=== PATIENT | female | born 1945 | race Caucasian/White ===

== ENCOUNTER 2018-03-23 07:19 | Emergency (ER) | payer MEDICARE ==
[~2018-03-23 07:19] MED LIST: DARV PO; ESTR.3 PO; LISI10TA PO; LORT5TAB PO
[2018-03-23 07:31] VITALS: BP 140/76; PULSE 93; RESP 16; TEMP 98.9; O2SAT 95
[2018-03-23] MEDS ORDERED: LISI20TA PO (08:17)
[2018-03-23] MEDS ORDERED: CEPH-460 PO (08:17)
[2018-03-23] MEDS ORDERED: ALBU6.7H INH (08:32)
[2018-03-23] MEDS ORDERED: TRIA1SPR7 EACH NARE (08:32)
[2018-03-23] MEDS ORDERED: BENZ100 PO (08:32)
[2018-03-23] MEDS ORDERED: LORA-400 PO (08:32)
[2018-03-23] MEDS ORDERED: GUAI100S5 PO (08:32)
--- NOTE | 2018-03-23 08:32 | PD ---
HPI Chief Complaint: Cold / Flu Symptoms Time Seen by Provider: 08:19 Travel History International Travel<30 days: No Contact w/Intl Traveler<30days: No Traveled to known affect area: No History of Present Illness HPI 72-year-old female complains of cough for about 1 week. Keflex has not helped. Associated symptoms include right middle ear effusion and possible sinusitis. Falls cough drops or helpful. No fever. No chest pain or shortness of breath. Patient has had difficulty sleeping because of the cough. Patient also reports rhinorrhea. She denies GERD. No history of asthma or COPD. PFSH Past Medical History Arthritis: No Blood Disorders: No Heart Rhythm Problems: No Cancer: Yes (skin - removed) High Cholesterol: No Chemotherapy: No Chest Pain: No Congestive Heart Failure: No Diabetes: No Diminished Hearing: No Endocrine: No Headaches: Yes Hypertension: Yes Immune Disorder: No Musculoskeletal: No Neurologic: No Psychiatric: No Respiratory: No Myocardial Infarction: No Radiation Therapy: No Influenza Vaccination: No ?: Not Past Surgical History Abdominal Surgery: Yes (exp lap) AICD: No Arteriovenous Shunt: No Cardiac Surgery: No Ear Surgery: No Endocrine Surgery: No Eye Surgery: No Genitourinary Surgery: No Gynecologic Surgery: Yes (BILAT OOPHRECTOMY, CYSTS REMOVED FROM BREASTS.) Hysterectomy: Yes Insulin Pump: No Joint Replacement: No Oral Surgery: No Pacemaker: No Thoracic Surgery: No Tonsillectomy: Yes Other Surgery: Yes (breast surgery for fibroids) Social History Alcohol Use: Yes (OCCAISIONAL) Tobacco Use: No Substance Use: No Allergies-Medications (Allergen,Severity, Reaction): Coded Allergies: erythromycin base (Verified Allergy, Mild, vomiting, 03/23/18) penicillin G (Verified Allergy, Unknown, 03/23/18) hydromorphone (Verified Adverse Reaction, Severe, VOMITING, 03/23/18) Reported Meds & Prescriptions Reported Meds & Active Scripts Active Reported Lisinopril-Hctz 20-12.5 Mg Tab 1 Tab PO DAILY Keflex (Cephalexin) 500 Mg Cap 500 Mg PO Q8H Review of Systems Except as stated in HPI: all other systems reviewed are Neg General / Constitutional: No: Fever Physical Exam Narrative GENERAL: 72-year-old female pleasant well-nourished well-developed occasional cough Vital Signs Date Time Temp Pulse Resp B/P (MAP) Pulse Ox O2 Delivery O2 Flow Rate FiO2 03/23/18 08:12 17 95 Room Air 03/23/18 07:31 98.9 93 16 140/76 (97) 95 SKIN: Warm and dry. HEAD: Atraumatic. Normocephalic. EYES: Pupils equal and round. No scleral icterus. No injection or drainage. ENT: No nasal bleeding or discharge. Mucous membranes pink and moist.There is no middle ear effusion or erythema about the tympanic membrane on a side. No mastoid tenderness. Posterior oropharynx is widely patent. There is no exudate or asymmetry. NECK: Trachea midline. No JVD. CARDIOVASCULAR: Regular rate and rhythm. RESPIRATORY: No accessory muscle use. Clear to auscultation. Breath sounds equal bilaterally. GASTROINTESTINAL: Abdomen soft, non-tender, nondistended. Hepatic and splenic margins not palpable. MUSCULOSKELETAL: Extremities without clubbing, cyanosis, or edema. No obvious deformities. NEUROLOGICAL: Awake and alert. No obvious cranial nerve deficits. Motor grossly within normal limits. Five out of 5 muscle strength in the arms and legs. Normal speech. PSYCHIATRIC: Appropriate mood and affect; insight and judgment normal. Data Data Last Documented VS Vital Signs Date Time Temp Pulse Resp B/P (MAP) Pulse Ox O2 Delivery O2 Flow Rate FiO2 03/23/18 08:12 17 95 Room Air 03/23/18 07:31 98.9 93 140/76 (97) [facility] Medical Decision Making Medical Screen Exam Complete: Yes Emergency Medical Condition: Yes Medical Record Reviewed: Yes Differential Diagnosis Postnasal drip, GERD, lisinopril side effect Narrative Course Patient with cough for one and a half weeks. Scripts as below. Diagnosis Primary Impression: Post-nasal drip Referrals: Primary Care Physician call for appointment Med/Other Pt SpecificInfo: Prescription(s) given Scripts Albuterol 6.7 GM Inh (Proventil Hfa 6.7 GM Inh) 90 Mcg/Act Aer 2 PUFF INH Q4-6H Y for SHORTNESS OF BREATH for 7 Days, #1 INHALER 0 Refills Prov: Guille Alicea MD 03/23/18 Triamcinolone Nasal (Nasal Allergy 24 Hour) 55 Mcg Spr 1 SPRAY EACH NARE DAILY for Allergies for 7 Days, #1 BOTTLE 0 Refills Prov: Guille Alicea MD 03/23/18 Loratadine-Pseudoephedrine 24 HR (Claritin-D 24 HR) 10-240 Mg Tab 1 TAB PO DAILY for Allergy Management for 30 Days, #30 TAB 0 Refills Prov: Guille Alicea MD 03/23/18 Guaifenesin-Codeine Liq (Guaifenesin-Codeine Liq) 100-10 Mg/5 Ml Soln 10 ML PO Q6H Y for COUGH for 7 Days, #1 BOTTLE 0 Refills Prov: Guille Alicea MD 03/23/18 Benzonatate (Tessalon Perles) 100 Mg Cap 100 MG PO TID Y for COUGH, #30 CAP 0 Refills Prov: Guille Alicea MD 03/23/18 Disposition: 01 DISCHARGE HOME Condition: Stable Guille Alicea MD March 23, 2018 08:32
[2018-03-23] MEDS ORDERED: BENZONATATE 100 MG CAP PO ONE (08:45)
[2018-03-23] MEDS ORDERED: LIDOCAINE VISCOUS 2% SOLN 15 ML UDC PO ONE (08:45)
== END 2018-03-23 08:51 | disposition home or self-care (01) ==
LOC: PHED 07:19
DX: R09.82 Postnasal drip (principal); R05 Cough; J34.89 Other specified disorders of nose and nasal sinuses; I10 Essential (primary) hypertension; Z79.899 Other long term (current) drug therapy; Z88.0 Allergy status to penicillin; Z88.5 Allergy status to narcotic agent
CPT/HCPCS: 99283

== ENCOUNTER 2018-05-10 12:36 | Emergency (ER) | payer MEDICARE ==
[~2018-05-10] VITALS: Ht 160 cm; Wt 74.0 kg
[~2018-05-10 12:36] MED LIST changes: +ALBU6.7H INH; +BENZ100 PO; +CEPH-460 PO; -DARV PO; -ESTR.3 PO; +GUAI100S5 PO; -LISI10TA PO; +LISI20TA PO; +LORA-400 PO; -LORT5TAB PO; +TRIA1SPR7 EACH NARE
[2018-05-10 12:45] VITALS: BP 171/73; PULSE 78; RESP 16; TEMP 98.6; O2SAT 97
[2018-05-10] MEDS ORDERED: METHOCARBAMOL 500 MG TAB PO ONE (13:30)
[2018-05-10] MEDS ORDERED: DEXAMETHASONE SOD PHOS 4 MG/ML VIAL IM ONE (13:30)
--- NOTE | 2018-05-10 13:33 | PD ---
HPI Chief Complaint: Musculoskeletal Complaint Time Seen by Provider: 13:24 Travel History International Travel<30 days: No Contact w/Intl Traveler<30days: No Traveled to known affect area: No History of Present Illness HPI 72-year-old female presents to the emergency department for evaluation of left low back pain that radiates to the left hip. Patient states the pain started yesterday. She states that certain movements will exacerbate the pain. Pain is currently 5/10, throbbing patient denies any traumatic injury. She states she is moving her [id number] to a longterm and has been helping with her 2-year-old grandson. She denies any fevers or chills. No loss of bowel or bladder control. No saddle anesthesias. Patient denies any urinary symptoms. No abdominal pain. No nausea, vomiting, diarrhea. She last took Aleve around 1130 this morning for her pain. Patient has history of hypertension and is on lisinopril. Mild severity. PFSH Past Medical History Arthritis: No Blood Disorders: No Heart Rhythm Problems: No Cancer: Yes (skin - removed) High Cholesterol: No Chemotherapy: No Chest Pain: No Congestive Heart Failure: No Diabetes: No Diminished Hearing: No Endocrine: No Gastrointestinal Disorders: No Headaches: Yes Hypertension: Yes Immune Disorder: No Implanted Vascular Access Dvce: No Musculoskeletal: No Neurologic: No Psychiatric: No Respiratory: No Myocardial Infarction: No Radiation Therapy: No Tetanus Vaccination: Unknown ?: Not Past Surgical History Abdominal Surgery: Yes (exp lap) AICD: No Arteriovenous Shunt: No Cardiac Surgery: No Ear Surgery: No Endocrine Surgery: No Eye Surgery: No Genitourinary Surgery: No Gynecologic Surgery: Yes (BILAT OOPHRECTOMY, CYSTS REMOVED FROM BREASTS.) Hysterectomy: Yes Insulin Pump: No Joint Replacement: No Neurologic Surgery: No Oral Surgery: No Pacemaker: No Thoracic Surgery: No Tonsillectomy: Yes Other Surgery: Yes (breast surgery for fibroids) Social History Alcohol Use: Yes (OCCAISIONAL) Tobacco Use: No Substance Use: No Allergies-Medications (Allergen,Severity, Reaction): Coded Allergies: erythromycin base (Verified Allergy, Mild, vomiting, 05/10/18) penicillin G (Verified Allergy, Unknown, 05/10/18) hydromorphone (Verified Adverse Reaction, Severe, VOMITING, 05/10/18) Reported Meds & Prescriptions Reported Meds & Active Scripts Active Reported Lisinopril-Hctz 20-12.5 Mg Tab 1 Tab PO DAILY Review of Systems Except as stated in HPI: all other systems reviewed are Neg Physical Exam Narrative GENERAL: Well-nourished, well-developed elderly female patient, afebrile. SKIN: Focused skin assessment warm/dry. HEAD: Normocephalic. Atraumatic. EYES: No scleral icterus. No injection or drainage. NECK: Supple, trachea midline. No JVD or lymphadenopathy. CARDIOVASCULAR: Regular rate and rhythm without murmurs, gallops, or rubs. RESPIRATORY: Breath sounds equal bilaterally. No accessory muscle use. Lung sounds are clear to auscultation. GASTROINTESTINAL: Abdomen soft, non-tender, nondistended. MUSCULOSKELETAL: No cyanosis, or edema. Bilateral upper and lower extremity strength 5/5. All extremities are neurovascularly intact. Patient is ambulatory with a steady gait. BACK: No obvious deformity. No CVA tenderness. No midline spinal tenderness. Straight leg raise is negative bilaterally. Patient has tenderness over the left lumbar paraspinal musculature. Data Data Last Documented VS Vital Signs Date Time Temp Pulse Resp B/P (MAP) Pulse Ox O2 Delivery O2 Flow Rate FiO2 05/10/18 12:45 98.6 78 16 171/73 (105) 97 Orders Orders Urinalysis - C+S If Indicated (05/10/18 13:30) Dexamethasone Inj (Decadron Inj) (05/10/18 13:30) Methocarbamol (Robaxin) (05/10/18 13:30) Labs Laboratory Tests Test 05/10/18 13:41 Urine Collection Type CLEAN CATCH Urine Color YELLOW Urine Turbidity CLEAR Urine pH 5.5 Urine Specific [place] LESS/EQUAL 1.005 Urine Protein NEG mg/dL Urine Glucose (UA) NEG mg/dL Urine Ketones NEG mg/dL Urine Occult Blood TRACE Urine Nitrite NEG Urine Bilirubin NEG Urine Urobilinogen 0.2 MG/DL Urine Leukocyte Esterase SMALL Urine RBC 0-3 /hpf Urine WBC 0-2 /hpf Urine Squamous Epithelial Cells 0-5 /hpf Microscopic Urinalysis Comment CULT NOT INDICATED Urine Collection Time 1347 MDM Medical Decision Making Medical Screen Exam Complete: Yes Emergency Medical Condition: Yes Medical Record Reviewed: Yes Differential Diagnosis Muscle strain versus spasm versus sciatica versus herniated disc versus UTI Narrative Course 72-year-old female presents to the emergency department for evaluation of left low back pain. No traumatic injury. No red flag symptoms. Symptoms are most consistent with muscle strain. UA is ordered and pending. Patient is given dexamethasone 8 mg IM, Robaxin 500 mg p.o. UA is negative. Patient will be discharged with a prescription for prednisone, Robaxin. She is to continue Aleve at home for pain as well. The patient was discharged in stable condition with instructions, including return instructions and follow up instructions. Diagnosis Primary Impression: Low back strain Qualified Codes: S39.012A - Strain of muscle, fascia and tendon of lower back , initial encounter Referrals: Primary Care Physician call for appointment Patient Instructions: Acute Low Back Pain (ED), General Instructions Additional Instructions: Continue Aleve at home as needed for pain. Take prednisone as directed. Start this tomorrow. Take Robaxin as directed as needed. Heating pad on low for 20 minutes 4-5 times daily. Follow-up with a primary care physician. Return to the emergency department for any acute worsening of symptoms. Med/Other Pt SpecificInfo: Prescription(s) given Scripts Methocarbamol (Robaxin) 500 Mg Tab 500 MG PO TID Y for MUSCLE SPASM, #21 TAB 0 Refills Prov: Jia Nichols 05/10/18 Prednisone (Prednisone) 20 Mg Tab 40 MG PO DAILY, #10 TAB 0 Refills Take 40 mg (2 tablets) daily for 5 days Prov: Jia Nichols 05/10/18 Disposition: 01 DISCHARGE HOME Condition: Stable Jia Nichols May 10, 2018 13:33
[2018-05-10 13:47] LABS: BILIRUBIN, URINE NEG (NEG); BLOOD, URINE TRACE (NEG); GLUCOSE,URINE NEG (NEG); KETONE, URINE NEG (NEG); NITRITE,URINE NEG (NEG); PH, URINE 5.5 (5.0-8.5); URINE COLOR YELLOW (YELLW/STRAW); URINE LEUKOCYTE ESTERASE SMALL (NEG)
[2018-05-10 13:52] LABS: RBC, URINE 0-3 /hpf (0-3); SQUAMOUS EPITHELIAL CELL URINE 0-5 /hpf (0-5); WBC, URINE 0-2 /hpf (0-5)
[2018-05-10] MEDS ORDERED: PRED20 PO (13:54)
[2018-05-10] MEDS ORDERED: ROBA500T PO (13:54)
== END 2018-05-10 14:15 | disposition home or self-care (01) ==
LOC: PHEFT 12:36
DX: S39.012A Strain of muscle, fascia and tendon of lower back, initial encounter (principal); I10 Essential (primary) hypertension; X58.XXXA Exposure to other specified factors, initial encounter; Z88.0 Allergy status to penicillin; Z88.1 Allergy status to other antibiotic agents; Z88.5 Allergy status to narcotic agent
CPT/HCPCS: 81001; 96372; 99283; J1100